=== PATIENT | female | born 1955 | race Caucasian/White ===

== ENCOUNTER 2018-10-07 16:45 | Inpatient (IN) ==
--- NOTE | 2018-10-07 17:56 | XR ---
EXAM DATE: 10/07/2018 5:53 PM EST AGE/SEX: 63 years / Female INDICATIONS: Pain in anterior chest. CLINICAL DATA: This is the patient's initial encounter. Patient reports that signs and symptoms have been present for 1 day and indicates a pain score of 5/10. MEDICAL/SURGICAL HISTORY: None. None. COMPARISON: No prior exams available for comparison. FINDINGS: A single AP view of the chest demonstrates the lungs to be symmetrically aerated without evidence of mass, infiltrate or effusion. The cardiomediastinal contours are unremarkable. Osseous structures a re intact. CONCLUSION: No acute intrathoracic disease. Electronically signed by: Chintan Ivan MD 10/07/2018 5:55 PM EST
[2018-10-07 17:58] LABS: Baso % (Auto) 0.3 % (0.0-2.0); Eos # (Auto) 0.1 th/mm3 (0.0-0.4); Eos % (Auto) 1.9 % (0.0-4.0); Hematocrit 47.1 % (35.0-46.0); Hemoglobin 15.1 gm/dL (11.6-15.3); Lymph # (Auto) 1.8 th/mm3 (1.0-4.8); Lymph % (Auto) 23.2 % (9.0-44.0); Mean Corpuscular HGB Conc 32.1 % (32.0-36.0); Mean Corpuscular Hemoglobin 29.9 pg (27.0-34.0); Mean Corpuscular Volume 93.1 fL (80.0-100.0); Mean Platelet Volume 8.4 fL (7.0-11.0); Mono # (Auto) 0.5 th/mm3 (0.0-0.9); Mono % (Auto) 6.2 % (0.0-8.0); Neut # (Auto) 5.3 th/mm3 (1.8-7.7); Neut % (Auto) 68.4 % (16.0-70.0); Platelet Count 261 th/mm3 (150-450); Red Blood Count 5.07 mil/mm3 (4.00-5.30); Red Cell Distribution Width 12.6 % (11.6-17.2); White Blood Count 7.7 th/mm3 (4.0-11.0)
[2018-10-07 18:13] LABS: Chloride 107 meq/L (98-107); Potassium 3.5 meq/L (3.5-5.1); Sodium 142 meq/L (136-145)
[2018-10-07 18:17] LABS: Albumin 3.8 g/dL (3.4-5.0); Anion Gap 5 meq/L (5-15); Calcium 8.3 mg/dL (8.5-10.1); Carbon Dioxide 30.2 meq/L (21.0-32.0); Glucose,Random 117 mg/dL (74-106); Lipase 136 U/L (73-393)
[2018-10-07 18:18] LABS: Blood Urea Nitrogen 8 mg/dL (7-18)
[2018-10-07 18:20] LABS: Alanine Aminotransferase 30 U/L (10-53); Aspartate Aminotransferase 79 U/L (15-37); Glomerular Filtration Rate 81 mL/min (>89)
[2018-10-07 18:22] LABS: Total Protein 7.3 g/dL (6.4-8.2)
[2018-10-07 18:23] LABS: Alkaline Phosphatase 84 U/L (45-117)
[2018-10-07 18:53] LABS: Troponin I 7.81 ng/mL (0.02-0.05)
[2018-10-07] MEDS ORDERED: Heparin 10,000 UNITS/10 ML Vial (for IV use) IV.PUSH STA (18:55)
[2018-10-07] MEDS ORDERED: Nitroglycerin Drip Premix 50 MG/250 ML BOTTLE IV.CONT PRN (19:17)
--- NOTE | 2018-10-07 19:46 | ED ---
HPI General Chief Complaint: Chest Pain Stated Complaint: chest pain Time Seen by Provider: 10/07/18 16:48 Source: patient Mode of arrival: ambulatory Limitations: no limitations History of Present Illness HPI narrative: 63 yo F c/o retrosternal CP for 3.5 days approximately. 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 pain can be severe at times with radiation into bilateral arms. no similar prior episodes. increased fatigue has accompanied pain. pt denies exertional component however reports decreased activity over past few days. no fever/ chills. no injury. no hx cad, htn, dm or family hx per patient. + baby asa yesterday (although pt reports asa causes tremors). + tobaccoism. Related Data Home Medications Medication Instructions Recorded Confirmed No Known Home Medications 10/07/18 10/07/18 Allergies Allergy/AdvReac Type Severity Reaction Status Date / Time aspirin Allergy Twitching Verified 10/07/18 17:07 Review of Systems ROS: all other systems reviewed are negative [facility] Medical History Medical History Hx of aplastic anemia (Acute) Hx of bronchitis (Acute) Surgical History Surgical History History of partial hysterectomy (Acute) Social History Social History Substance History: No History of Abuse Smoking Status: Current every day smoker Tobacco Type: Cigarettes How Often Do You Have a Drink Containing Alcohol: Monthly or less Recent Travel in [facility] within the Last 8 Weeks: No Recent Out of Country Travel within the Last 8 Weeks: No Immunization History Tetanus Immunization: >5 Years Exam Narrative Exam Narrative: GENERAL: 63 yo F, WNWD, pleasant, mild distress 2/2 pain SKIN: Focused skin assessment warm/dry. HEAD: Atraumatic. Normocephalic. EYES: Pupils equal and round. No scleral icterus. No injection or drainage. ENT: No nasal bleeding or discharge. Mucous membranes pink and moist. NECK: Trachea midline. No JVD. CARDIOVASCULAR: Regular rate and rhythm. No murmur appreciated. Minimal CP anterior chest wall. RESPIRATORY: No accessory muscle use. Clear to auscultation. Breath sounds equal bilaterally. GASTROINTESTINAL: Abdomen soft, non-tender, nondistended. Hepatic and splenic margins not palpable. MUSCULOSKELETAL: No obvious deformities. No clubbing. No cyanosis. No edema. NEUROLOGICAL: Awake and alert. No obvious cranial nerve deficits. Motor grossly within normal limits. Normal speech. PSYCHIATRIC: Appropriate mood and affect; insight and judgment normal. Course Initial Documented Vital Signs Temperature 98.2 F 10/07/18 17:01 Pulse Rate 77 10/07/18 17:01 Respiratory Rate 20 10/07/18 17:01 Blood Pressure 122/74 10/07/18 17:01 Pulse Oximetry 98 10/07/18 17:01 Last Documented Vital Signs Temperature 98.2 F 10/07/18 17:01 Pulse Rate 78 10/07/18 20:32 Respiratory Rate 16 10/07/18 20:32 Blood Pressure 118/81 10/07/18 20:32 Pulse Oximetry 99 10/07/18 20:32 Critical Care Time Critical Care Time: Yes Total Critical Care Time: 40 Attestation: Aggregate critical care time was 40 minutes. Time to perform other separately billable procedures was not included in the critical care time. My time did not include minutes spent treating any other patients simultaneously or on activities that did not directly contribute to the patient's treatment. The services I provided to this patient were to treat and/or prevent clinically significant deterioration that could result in: cardiomyopathy, permanent disability I provided critical care services requiring my management, as noted below: Chart data review, documentation time, medication orders and management, vital sign assessments/reviewing monitor data, ordering and reviewing lab tests, ordering and interpreting/reviewing x-rays and diagnostic studies, care of the patient and discussion of the patient with the admitting physicians. Medical Decision Making MDM Narrative Medical decision making narrative: Tn 7.8 EKG sinus rate 75 normal axis, TWI in II/III and aVF and V5/V6 pt c/o bilateral arm pain at 1850, nitro and heparin ordered d/w Dr Ely: NPO p MN, heparin gtt and nitro gtt d/w Dr Roberts for [facility] discussed plan with patient, who verbalized agreement with it pain controlled in ED Medical Screen Exam Complete: Yes Emergency Medical Condition: Yes Differential Diagnosis Differential Diagnosis: NSTEMI, unstable angina, coronary vasospasm, PE, PTX, aortic dissection, pericarditis, myocarditis, endocarditis, PNA, esophageal disease, aneurysm, musculoskeletal etiologies, anxiety, cocaine/sympathomimetic abuse Lab Data Lab results reviewed: Yes I reviewed the patient's lab results. Result diagrams: 10/07/18 17:15 10/07/18 17:15 Lab Results 10/07/18 10/07/18 10/07/18 Range/Units 17:15 17:15 19:30 CBC w Diff Auto diff final WBC 7.7 (4.0-11.0) th/mm3 RBC 5.07 (4.00-5.30) mil/mm3 Hgb 15.1 (11.6-15.3) gm/dL Hct 47.1 H (35.0-46.0) % MCV 93.1 (80.0-100.0) fL MCH 29.9 (27.0-34.0) pg MCHC 32.1 (32.0-36.0) % RDW 12.6 (11.6-17.2) % Plt Count 261 (150-450) th/mm3 MPV 8.4 (7.0-11.0) fL Neut % (Auto) 68.4 (16.0-70.0) % Lymph % (Auto) 23.2 (9.0-44.0) % [place] % (Auto) 6.2 (0.0-8.0) % Eos % (Auto) 1.9 (0.0-4.0) % Baso % (Auto) 0.3 (0.0-2.0) % Neut # (Auto) 5.3 (1.8-7.7) th/mm3 Lymph # (Auto) 1.8 (1.0-4.8) th/mm3 [place] # (Auto) 0.5 (0.0-0.9) th/mm3 Eos # (Auto) 0.1 (0.0-0.4) th/mm3 Baso # (Auto) 0.0 (0.0-0.2) th/mm3 WBC Differential . Differential Comment . PT 10.0 (9.8-11.6) sec INR 1.0 Ratio APTT 28.2 (23.4-31.7) sec Sodium 142 (136-145) meq/L Potassium 3.5 (3.5-5.1) meq/L Chloride 107 (98-107) meq/L Carbon Dioxide 30.2 (21.0-32.0) meq/L Anion Gap 5 (5-15) meq/L BUN 8 (7-18) mg/dL Creatinine 0.73 (0.50-1.00) mg/dL Estimated GFR 81 L (>89) mL/min Random Glucose 117 H (74-106) mg/dL Calcium 8.3 L (8.5-10.1) mg/dL Total Bilirubin 0.2 (0.2-1.0) mg/dL AST 79 H (15-37) U/L ALT 30 (10-53) U/L Alkaline Phosphatase 84 (45-117) U/L Troponin I 7.81 H* (0.02-0.05) ng/mL Total Protein 7.3 (6.4-8.2) g/dL Albumin 3.8 (3.4-5.0) g/dL Lipase 136 (73-393) U/L Imaging Data Radiologist's impression: Chest X-Ray 10/07/18 17:36 CONCLUSION: No acute intrathoracic disease. Discharge Plan Discharge Disposition Patient Disposition: ED Admit(ED Internal Use Only) Discharge Order Discharge Orders: ED Use Only Admit Order (Routine); Ordered 10/07/18 Ordered By: Zach Grossman Physicians Team ED Provider: Zach Grossman Primary Care Provider: Primary Care Mike,Yasmine Attending Provider: Zach Roberts Status ED Status: Admitted Patient
[2018-10-07 19:50] LABS: Activated Partial Thrombo Time 28.2 sec (23.4-31.7)
[2018-10-07] MEDS ORDERED: Acetaminophen 325 MG Tablet PO PRN (20:10)
[2018-10-07] MEDS ORDERED: Bisacodyl 10 MG Supp RECTAL PRN (20:10)
[2018-10-07] MEDS: Sod Chloride 0.9% Inj 1,000 ML IV.CONT SCH (20:29)
--- NOTE | 2018-10-07 21:00 | ECG ---
Date Performed: 10/07/2018 Time Performed: 16:58:33 PTAGE: 63 years EKG: Sinus rhythm versus ECTOPIC ATRIAL RHYTHM ST DEVIATION AND MODERATE T-WAVE ABNORMALITY, CONSIDER LATERAL ISCHEMIA ABNORMAL ECG WARNING: DATA QUALITY MAY AFFECT INTERPRETATION NO PREVIOUS TRACING DOCTOR: Rigo Chau Interpretating Date/Time 10/07/2018 20:59:45
[2018-10-08] MEDS ORDERED: Heparin Drip 25,000 UNIT/250 ML BAG IV.CONT PRN (00:55)
[2018-10-08] MEDS ORDERED: Heparin 10,000 UNITS/10 ML Vial (for IV use) IV.PUSH PRN ×3 (00:56→07:03)
--- NOTE | 2018-10-08 01:43 | P.HPIM ---
History of Present Illness Service: [facility] . Primary Care Physician: No Primary Care Physician Chief Complaint: Chest pain History of Present Illness: Ms. Pacheco is a 63-year-old female with a history of bronchitis and remote aplastic anemia in the 70s who presented to the emergency room and [place] complaining of 3-1/2 days of intermittent chest pain. Her initial troponin I was 7.81, and she was admitted to the [facility]. The patient was started on nitroglycerin IV and transferred to [facility] for cardiac cath with Dr. Grossman in the morning. The patient is seen in her hospital room. She reports that she smoked a cigarette on Friday that "tasted funny" and she thinks this caused her chest pain. She states her chest pain lasted for about an hour was accompanied by diaphoresis and radiated down both arms with what is described as an achy pain. She states she had intermittent episodes of chest pain over the past 3-1/2 days with nausea only occurring yesterday. The pain went away with rest but felt severe and heavy in quality. She has been feeling okay otherwise and denies any fevers, chills, shortness of breath, nausea, vomiting, or diarrhea. She really reports that her chest pain had more of an exertional component. She denies any chest pain at the time of my visit. . Inpatient Certification: I certify that the inpatient services were ordered in accordance with Medicare regulations governing the order. This includes certification that hospital inpatient services are reasonable and necessary and in the case of services not specified as inpatient-only under 42 CFR 419.22(n), that they are appropriately provided as inpatient services in accordance to with the 2-midnight benchmark under 43 CFR 412.3(e) Estimated Total Length of Stay (Days): 3 Plans for Post Hospital Care: Not yet determined Review of Systems All other systems reviewed negative except as stated in HPI PMFSH - History History Provided By: Patient - Medical History Medical History: Medical History (Last Updated 10/08/18 @ 02:01 by ARGENIS Jean) Hx of aplastic anemia Onset Date: ~1970 Hx of bronchitis - Surgical History Surgical History: Surgical History (Last Reviewed 10/08/18 @ 01:02 by ARGENIS Jean) History of partial hysterectomy - Family History Family History: Family History (Last Updated 10/08/18 @ 02:02 by ARGENIS Jean) Mother Family history of angina Aunt Family history of congestive heart failure - Social History I have reviewed the patient's Social History: Yes - Tobacco History Tobacco Use In Past 30 Days: Yes Smoking Status: Current every day smoker Tobacco Type: Cigarettes - Alcohol History How Often Do You Have a Drink Containing Alcohol: Monthly or less - Substance Use History Substance History: No History of Abuse - Travel History Recent Travel in the [place] Within the Last 8 Weeks: No Recent Travel Out of the Country Within the Last 8 Weeks: No - Immunization History Tetanus Immunization: >5 Years Medications and Allergies Active Medications: Active Medications Acetaminophen (Tylenol) 650 mg PO Q4H PRN PRN Reason: Temp > 100.4 Al Hydroxide/Mg Hydroxide (Milk Of Magnesia Liq) 30 ml PO Q12H PRN PRN Reason: Mild Constipation Aspirin (Aspirin Chew) 81 mg PO DAILY [facility] Last Admin: 10/07/18 20:30 Dose: Not Given Bisacodyl (Dulcolax Supp) 10 mg RECTAL DAILY PRN PRN Reason: SEVERE CONSITIPATION Heparin Sodium (Porcine) (Heparin Inj) 2,500 units IV.PUSH UNSCH PRN PRN Reason: aPTT 25-39 Heparin Sodium (Porcine) (Heparin Inj) 5,000 units IV.PUSH UNSCH PRN PRN Reason: aPTT < 25 Nitroglycerin/Dextrose (Nitroglycerin Drip Premix) 50 mg in 250 mls @ 0 mls/hr IV.CONT TITRATE PRN; Protocol PRN Reason: Per Protocol Last Admin: 10/07/18 20:14 Dose: 5 mcg/min, 1.5 mls/hr Sodium Chloride (Ns Inj) 1,000 mls @ 70 mls/hr IV.CONT .[id number] [facility] Last Admin: 10/07/18 20:29 Dose: 70 mls/hr Heparin Sodium/Dextrose (Heparin/D5w 25,000 U/250 Ml) 25,000 unit in 250 mls @ 7 mls/hr IV.CONT TITRATE PRN; Protocol PRN Reason: Per Protocol Last Admin: 10/08/18 01:23 Dose: 700 units/hr, 7 mls/hr Lactulose (Lactulose Liq) 30 ml PO DAILY PRN PRN Reason: SEVERE CONSITIPATION Ondansetron HCl (Zofran Inj) 4 mg IV.PUSH Q6H PRN PRN Reason: NAUSEA OR VOMITING Sennosides (Senokot) 17.2 mg PO Q12H PRN PRN Reason: Moderate Constipation Sodium Chloride (Ns Flush) 2 ml IV.FLUSH BID QUINTON Sodium Chloride (Ns Flush) 2 ml IV.FLUSH PRN PRN PRN Reason: FLUSH AFTER USING IV ACCESS Allergies Allergy/AdvReac Type Severity Reaction Status Date / Time aspirin Allergy Twitching Verified 10/07/18 17:07 Home Medications Medication Instructions Recorded Confirmed Type No Known Home Medications 10/07/18 10/07/18 History Exam Vital signs: Vital Signs 10/07/18 17:01 10/07/18 17:15 10/07/18 17:55 Temperature 98.2 F Pulse Rate 77 68 64 Respiratory Rate 20 20 Blood Pressure 122/74 128/81 Pulse Oximetry 98 97 97 10/07/18 19:19 10/07/18 19:40 10/07/18 20:32 Temperature Pulse Rate 72 74 78 Respiratory Rate 20 18 16 Blood Pressure 137/90 128/88 118/81 Pulse Oximetry 100 100 99 10/07/18 20:53 10/07/18 21:20 10/07/18 21:43 Temperature Pulse Rate 78 82 78 Respiratory Rate 16 18 18 Blood Pressure 104/78 125/84 107/63 Pulse Oximetry 99 99 100 Intake & Output 10/07/18 10/07/18 10/08/18 06:59 18:59 06:59 Output Total 300 / 300 Balance -300 / -300 Weight 62 kg Output: Urine 300 / 300 Other: # Voids 1 Narrative: GENERAL: This is a thin older female patient, in no apparent distress. SKIN: No rashes, ecchymoses or lesions. Cool and dry. HEAD: Atraumatic. Normocephalic. EYES: No scleral icterus. No injection or drainage. ENT: Nose without bleeding, purulent drainage. NECK: Trachea midline. No JVD or lymphadenopathy. CARDIOVASCULAR: Regular rate and rhythm without murmurs, gallops, or rubs. RESPIRATORY: Breath sounds equal bilaterally; air exchange diminished at bases. No wheezes, rales, or rhonchi. GASTROINTESTINAL: Abdomen soft, non-tender, nondistended. No guarding. MUSCULOSKELETAL: Extremities without clubbing, cyanosis, or edema. No calf tenderness. NEUROLOGICAL: Awake and alert. Motor and sensory grossly within normal limits. Normal speech. . Results - Labs CBC & Chem 7: 10/08/18 01:24 10/08/18 01:24 Labs: Short CBC 10/07/18 Range/Units 17:15 WBC 7.7 (4.0-11.0) th/mm3 Hgb 15.1 (11.6-15.3) gm/dL Hct 47.1 H (35.0-46.0) % Plt Count 261 (150-450) th/mm3 BMP 10/07/18 17:15 Sodium 142 Potassium 3.5 Chloride 107 Carbon Dioxide 30.2 BUN 8 Creatinine 0.73 Calcium 8.3 L Cardiac Enzymes 10/07/18 10/07/18 Range/Units 17:15 20:50 Troponin I 7.81 H* 15.70 H* D (0.02-0.05) ng/mL Liver Function 10/07/18 Range/Units 17:15 Total Bilirubin 0.2 (0.2-1.0) mg/dL AST 79 H (15-37) U/L ALT 30 (10-53) U/L Alkaline Phosphatase 84 (45-117) U/L Albumin 3.8 (3.4-5.0) g/dL - Imaging Impressions Chest X-Ray 10/07/18 17:36 CONCLUSION: No acute intrathoracic disease. Caprini VTE Risk Assessment Caprini VTE Risk Assessment: Moderate/High Risk (score >= 2) Caprini Risk Assessment Model: Point Value = 1 Point Value = 2 Point Value = 3 Point Value = 5 Age 41-60 Minor surgery BMI > 25 kg/m2 Swollen legs Varicose veins or History of unexplained or recurrent spontaneous Oral contraceptives or hormone replacement Sepsis (< 1 month) Serious lung disease, including pneumonia (< 1 month) Abnormal pulmonary function Acute myocardial infarction Congestive heart failure (< 1 month) History of inflammatory bowel disease Medical patient at bed rest Age 61-74 Arthroscopic surgery Major open surgery (> 45 min) Laparoscopic surgery (> 45 min) Malignancy Confined to bed (> 72 hours) Immobilizing plaster cast Central venous access Age >= 75 History of VTE Family history of VTE Factor V Leiden Prothrombin [id number] Lupus anticoagulant Anticardiolipin antibodies Elevated serum homocysteine Heparin-induced thrombocytopenia Other congenital or acquired thrombophilia Stroke (< 1 month) Elective arthroplasty Hip, pelvis, or leg fracture Acute spinal cord injury (< 1 month) Prophylaxis Regimen: Total Risk Factor Score Risk Level Prophylaxis Regimen 0-1 Low Early ambulation 2 Moderate Order ONE of the following: *Sequential Compression Device (SCD) *Heparin 5000 units SQ BID 3-4 Higher Order ONE of the following medications: *Heparin 5000 units SQ TID *Enoxaparin/Lovenox 40 mg SQ daily (WT < 150 kg, CrCl > 30 mL/min) *Enoxaparin/Lovenox 30 mg SQ daily (WT < 150 kg, CrCl > 10-29 mL/min) *Enoxaparin/Lovenox 30 mg SQ BID (WT < 150 kg, CrCl > 30 mL/min) AND/OR *Sequential Compression Device (SCD) 5 or more Highest Order ONE of the following medications: *Heparin 5000 units SQ TID (Preferred with Epidurals) *Enoxaparin/Lovenox 40 mg SQ daily (WT < 150 kg, CrCl > 30 mL/min) *Enoxaparin/Lovenox 30 mg SQ daily (WT < 150 kg, CrCl > 10-29 mL/min) *Enoxaparin/Lovenox 30 mg SQ BID (WT < 150 kg, CrCl > 30 mL/min) AND *Sequential Compression Device (SCD) Assessment and Plan - Plan Ms. Pacheco is a 63-year-old female with a history of bronchitis and remote aplastic anemia in the 70s who presented to the emergency room and [place] complaining of 3-1/2 days of intermittent chest pain. Her initial troponin I was 7.81, and she was admitted to the [facility]. The patient was started on nitroglycerin IV and transferred to [facility] for cardiac cath with Dr. Grossman in the morning. NSTEMI -Troponin I 7.81, 15.70, and 34.8 -Twelve-lead EKG is personally reviewed and show ectopic atrial rhythm with nonspecific ST and T wave abnormalities in lateral leads x 2 ekgs -Continue nitroglycerin drip -Heparin drip ordered with boluses -Consult to cardiology-appreciate assistance -Continuous cardiac telemetry to monitor for arrhythmia -Monitor I and O for fluid overload -Monitor vital signs -Supplemental oxygen as needed -N.p.o. except for meds -We will check hemoglobin A1c and lipid profile for underlying predisposing conditions DVT prophylaxis -on heparin drip Discussed Condition With: Dr. Richard, patient, patient's daughter with patient's permission, and bedside RN .
[2018-10-08 01:50] LABS: Baso % (Auto) 0.2 % (0.0-2.0); Eos # (Auto) 0.1 th/mm3 (0.0-0.4); Eos % (Auto) 0.9 % (0.0-4.0); Hematocrit 40.6 % (35.0-46.0); Hemoglobin 13.9 gm/dL (11.6-15.3); Lymph # (Auto) 1.6 th/mm3 (1.0-4.8); Lymph % (Auto) 15.9 % (9.0-44.0); Mean Corpuscular HGB Conc 34.3 % (32.0-36.0); Mean Corpuscular Hemoglobin 31.4 pg (27.0-34.0); Mean Corpuscular Volume 91.7 fL (80.0-100.0); Mean Platelet Volume 7.1 fL (7.0-11.0); Mono # (Auto) 0.7 th/mm3 (0.0-0.9); Mono % (Auto) 7.3 % (0.0-8.0); Neut # (Auto) 7.7 th/mm3 (1.8-7.7); Neut % (Auto) 75.7 % (16.0-70.0); Platelet Count 203 th/mm3 (150-450); Prothrombin Time 10.5 sec (9.8-11.6); Red Blood Count 4.43 mil/mm3 (4.00-5.30); Red Cell Distribution Width 12.7 % (11.6-17.2); White Blood Count 10.1 th/mm3 (4.0-11.0)
[2018-10-08 02:02] LABS: Potassium 4.1 meq/L (3.5-5.1); Sodium 144 meq/L (136-145)
[2018-10-08 02:03] LABS: Alanine Aminotransferase 36 U/L (10-53); Anion Gap 3 meq/L (5-15); Aspartate Aminotransferase 116 U/L (15-37); Blood Urea Nitrogen 7 mg/dL (7-18); Calcium 8.2 mg/dL (8.5-10.1); Carbon Dioxide 31.1 meq/L (21.0-32.0); Chloride 110 meq/L (98-107); Glomerular Filtration Rate 74 mL/min (>89); Glucose,Random 137 mg/dL (74-106); Total Protein 6.5 g/dL (6.4-8.2)
[2018-10-08 02:04] LABS: Albumin 3.2 g/dL (3.4-5.0); Alkaline Phosphatase 72 U/L (45-117)
[2018-10-08 02:54] LABS: Activated Partial Thrombo Time 26.5 sec (23.4-31.7)
[2018-10-08 03:19] LABS: Chol/HDL Ratio 3.16 Ratio; HDL Cholesterol 55.9 mg/dL (40.0-60.0)
[2018-10-08] MEDS: Sod Chloride 0.9% Inj 1,000 ML IV.CONT SCH (05:58)
--- NOTE | 2018-10-08 06:55 | ECG ---
Date Performed: 10/07/2018 Time Performed: 22:04:57 PTAGE: 63 years EKG: ECTOPIC ATRIAL RHYTHM POSSIBLE LEFT ATRIAL ENLARGEMENT POSSIBLE RIGHT VENTRICULAR CONDUCTIO N DELAY Nonspecific ST and T wave abnormalities ABNORMAL ECG I'm not convinced there is any significa nt change although lead 2 appears incomplete. PREVIOUS TRACING : 10/07/2018 16.58 DOCTOR: Rigo Chau Interpretating Date/Time 10/08/2018 06:54:02
--- NOTE | 2018-10-08 08:02 | ECG ---
Date Performed: 10/08/2018 Time Performed: 03:30:52 PTAGE: 63 years EKG: Sinus rhythm Left axis deviation Possible inferior infarct - age undetermined Nonspecific ST and T wave abnormali ties Abnormal ECG No significant change from prior electrocardiogram. PREVIOUS TRACING : 10/07/2018 22.04 DOCTOR: Rigo Chau Interpretating Date/Time 10/08/2018 08:00:35
--- NOTE | 2018-10-08 08:33 | P.CONCA ---
History of Present Illness Primary Care Provider: No Primary Care Physician Chief Complaint: Chest pain History of Present Illness: 63-year-old female with no known past medical history who presented for chest pain. The patient states she had discomfort across her chest with associated bilateral arm numbness that lasted for several hours while watching football on Friday. She states the pain went away on its own, but the pain recurred yesterday and she went to the ED in [place] for evaluation. She reports no further chest pain since started on heparin and nitro GTTs. EKGs with NSR and inferolateral T wave inversions. Troponin 7->34. She is agreeable to [facility], but is very concerned with allergies. She states that she took aspirin for a year, but has not taken it for the last 20 years because once she took it for headache and it made the headache worse, she became shaky, and she vomited. She is also concerned about contrast administration with heart cath as her mother and aunts have contrast allergies, has never had contrast herself. Review of Systems All other systems reviewed negative except as stated in HPI [facility] - History History Provided By: Patient, Medical Record - Medical History Medical History: Medical History (Last Updated 10/08/18 @ 02:01 by ARGNEIS Jean) Hx of aplastic anemia Onset Date: ~1970 Hx of bronchitis - Surgical History Surgical History: Surgical History (Last Reviewed 10/08/18 @ 01:02 by ARGENIS Jean) History of partial hysterectomy - Family History Family History: Family History (Last Updated 10/08/18 @ 02:02 by ARGENIS Jean) Mother Family history of angina Aunt Family history of congestive heart failure - Tobacco History Second Hand Smoke Exposure: Yes Tobacco Use In Past 30 Days: Yes Smoking Status: Current every day smoker Tobacco Type: Cigarettes - Alcohol History How Often Do You Have a Drink Containing Alcohol: Monthly or less - Substance Use History Substance History: No History of Abuse - Travel History Recent Travel in the [place] Within the Last 8 Weeks: No Recent Travel Out of the Country Within the Last 8 Weeks: No - Immunization History Tetanus Immunization: >5 Years Hx Influenza Vaccine This Season: No Medications and Allergies Active Medications: Active Medications Acetaminophen (Tylenol) 650 mg PO Q4H PRN PRN Reason: Temp > 100.4 Al Hydroxide/Mg Hydroxide (Milk Of [place]and[place] Liq) 30 ml PO Q12H PRN PRN Reason: Mild Constipation Aspirin (Aspirin Chew) 81 mg PO DAILY [facility] Last Admin: 10/07/18 20:30 Dose: Not Given Bisacodyl (Dulcolax Supp) 10 mg RECTAL DAILY PRN PRN Reason: SEVERE CONSITIPATION Heparin Sodium (Porcine) (Heparin Inj) 2,500 units IV.PUSH UNSCH PRN PRN Reason: aPTT 25-39 Heparin Sodium (Porcine) (Heparin Inj) 5,000 units IV.PUSH UNSCH PRN PRN Reason: aPTT < 25 Nitroglycerin/Dextrose (Nitroglycerin Drip Premix) 50 mg in 250 mls @ 0 mls/hr IV.CONT TITRATE PRN; Protocol PRN Reason: Per Protocol Last Admin: 10/07/18 20:14 Dose: 5 mcg/min, 1.5 mls/hr Sodium Chloride (Ns Inj) 1,000 mls @ 70 mls/hr IV.CONT .[id number] [facility] Last Admin: 10/08/18 05:58 Dose: 70 mls/hr Heparin Sodium/Dextrose (Heparin/D5w 25,000 U/250 Ml) 25,000 unit in 250 mls @ 7 mls/hr IV.CONT TITRATE PRN; Protocol PRN Reason: Per Protocol Last Admin: 10/08/18 01:23 Dose: 700 units/hr, 7 mls/hr Lactulose (Lactulose Liq) 30 ml PO DAILY PRN PRN Reason: SEVERE CONSITIPATION Ondansetron HCl (Zofran Inj) 4 mg IV.PUSH Q6H PRN PRN Reason: NAUSEA OR VOMITING Sennosides (Senokot) 17.2 mg PO Q12H PRN PRN Reason: Moderate Constipation Sodium Chloride (Ns Flush) 2 ml IV.FLUSH BID [facility] Last Admin: 10/08/18 02:14 Dose: Not Given Sodium Chloride (Ns Flush) 2 ml IV.FLUSH PRN PRN PRN Reason: FLUSH AFTER USING IV ACCESS Allergies Allergy/AdvReac Type Severity Reaction Status Date / Time aspirin Allergy Twitching Verified 10/07/18 17:07 Home Medications Medication Instructions Recorded Confirmed Type No Known Home Medications 10/07/18 10/07/18 History Exam Vital signs: Vital Signs 10/07/18 17:01 12/12/18 17:15 10/07/18 17:55 Temperature 98.2 F Pulse Rate 77 68 64 Respiratory Rate 20 20 Blood Pressure 122/74 128/81 Pulse Oximetry 98 97 97 10/07/18 19:19 10/07/18 19:40 10/07/18 20:32 Temperature Pulse Rate 72 74 78 Respiratory Rate 20 18 16 Blood Pressure 137/90 128/88 118/81 Pulse Oximetry 100 100 99 10/07/18 20:53 10/07/18 21:20 10/07/18 21:43 Temperature Pulse Rate 78 82 78 Respiratory Rate 16 18 Blood Pressure 104/78 125/84 107/63 Pulse Oximetry 99 99 100 10/08/18 00:59 10/08/18 01:00 10/08/18 02:00 Temperature 98.2 F Pulse Rate 70 67 69 Respiratory Rate 20 Blood Pressure 137/89 Pulse Oximetry 98 10/08/18 03:00 10/08/18 04:00 10/08/18 05:00 Temperature 98.4 F Pulse Rate 66 76 69 Respiratory Rate 18 Blood Pressure 108/77 Pulse Oximetry 100 10/08/18 06:00 10/08/18 07:00 Temperature 98.6 F Pulse Rate 88 82 Respiratory Rate 18 Blood Pressure 108/65 Pulse Oximetry 97 Intake & Output 10/07/18 10/08/18 10/08/18 18:59 06:59 18:59 Intake Total 1090 / 1090 Output Total 300 / 300 Balance 790 / 790 Weight 136 lb 10.986 oz 136 lb 14.513 oz Intake: IV 850 / 850 NS Inj 1,000 ML @ 70 mls/hr IV. 850 / 850 CONT .[id number] [facility] Rx#: [id number] Oral 240 / 240 Output: Urine 300 / 300 Other: # Voids 2 Narrative: GENERAL: Well-developed well-nourished. In no acute distress. NECK: No carotid bruits. No JVD. CARDIOVASCULAR: Regular rate and rhythm. No murmur appreciated. RESPIRATORY: No accessory muscle use. Clear to auscultation. Breath sounds equal bilaterally. MUSCULOSKELETAL: No clubbing or cyanosis. No edema. NEUROLOGICAL: Awake and alert. Normal speech. Results 10/08/18 01:24 10/08/18 01:24 Cardiac Enzymes 10/07/18 10/07/18 10/08/18 Range/Units 17:15 20:50 01:24 AST 79 H 116 H (15-37) U/L Troponin I 7.81 H* 15.70 H* D 34.80 H* D (0.02-0.05) ng/mL Coagulation 10/07/18 10/08/18 10/08/18 Range/Units 19:30 01:24 06:56 PT 10.0 10.5 (9.8-11.6) sec APTT 28.2 26.5 33.8 H D (23.4-31.7) sec Lipids 10/08/18 Range/Units 01:24 Triglycerides 170 H (42-150) mg/dL Cholesterol 177 (120-200) mg/dL HDL Cholesterol 55.9 (40.0-60.0) mg/dL Cholesterol/HDL Ratio 3.16 Ratio CBC 10/07/18 10/08/18 Range/Units 17:15 01:24 WBC 7.7 10.1 (4.0-11.0) th/mm3 RBC 5.07 4.43 (4.00-5.30) mil/mm3 Hgb 15.1 13.9 (11.6-15.3) gm/dL Hct 47.1 H 40.6 (35.0-46.0) % Plt Count 261 203 (150-450) th/mm3 Neut # (Auto) 5.3 7.7 (1.8-7.7) th/mm3 Lymph # (Auto) 1.8 1.6 (1.0-4.8) th/mm3 [place] # (Auto) 0.5 0.7 (0.0-0.9) th/mm3 Eos # (Auto) 0.1 0.1 (0.0-0.4) th/mm3 Baso # (Auto) 0.0 0.0 (0.0-0.2) th/mm3 Comprehensive Metabolic Panel 10/07/18 10/08/18 Range/Units 17:15 01:24 Sodium 142 144 (136-145) meq/L Potassium 3.5 4.1 (3.5-5.1) meq/L Chloride 107 110 H (98-107) meq/L Carbon Dioxide 30.2 31.1 (21.0-32.0) meq/L BUN 8 7 (7-18) mg/dL Creatinine 0.73 0.79 (0.50-1.00) mg/dL Calcium 8.3 L 8.2 L (8.5-10.1) mg/dL AST 79 H 116 H (15-37) U/L ALT 30 36 (10-53) U/L Alkaline Phosphatase 84 72 (45-117) U/L Total Protein 7.3 6.5 D (6.4-8.2) g/dL Albumin 3.8 3.2 L D (3.4-5.0) g/dL Intake and Output 10/07/18 10/08/18 10/08/18 22:59 06:59 14:59 Intake Total 1090 / 1090 Output Total 300 / 300 Balance -300 / -300 1090 / 1090 Intake: IV 850 / 850 NS Inj 1,000 ML @ 70 mls/hr IV. 850 / 850 CONT .[id number] [facility] Rx#: [id number] Oral 240 / 240 Output: Urine 300 / 300 Other: # Voids 1 2 Weight 136 lb 10.986 oz 136 lb 14.513 oz - Imaging and Cardiology Imaging: Impressions Chest X-Ray 10/07/18 17:36 CONCLUSION: No acute intrathoracic disease. Assessment and Plan - Plan 63-year-old female smoker with no known past medical history who presented for chest pain. NSTEMI: Continue heparin and nitro GTTs for now. N.p.o. for [facility] today. Discussed Condition With: Patient with family at bedside, Dr. Ely
--- NOTE | 2018-10-08 12:04 | ECG ---
Date Performed: 10/08/2018 Time Performed: 09:18:22 PTAGE: 63 years EKG: Sinus rhythm . Left axis deviation Possible left ventricular hypertrophy Nonspecific ST and T wave abnormalities A bnormal ECG No significant change from prior electrocardiogram. G DOCTOR: Rigo Chau Interpretating Date/Time 10/08/2018 12:02:47
--- NOTE | 2018-10-08 12:06 | P.PN ---
Subjective Interval history: earlier off the floor- went for cardiac cath seen 1330 back from cardiac cath tolerated well no complains states previous smoker Physical Exam Vital signs: Vital Signs 10/07/18 17:01 10/07/18 17:15 10/07/18 17:55 Temperature 98.2 F Pulse Rate 77 68 64 Respiratory Rate 20 20 Blood Pressure 122/74 128/81 Pulse Oximetry 98 97 97 10/07/18 19:19 10/07/18 19:40 10/07/18 20:32 Temperature Pulse Rate 72 74 78 Respiratory Rate 20 18 16 Blood Pressure 137/90 128/88 118/81 Pulse Oximetry 100 100 99 10/07/18 20:53 10/07/18 21:20 10/07/18 21:43 Temperature Pulse Rate 78 82 78 Respiratory Rate 16 18 18 Blood Pressure 104/78 125/84 107/63 Pulse Oximetry 99 99 100 10/08/18 00:59 10/08/18 01:00 10/08/18 02:00 Temperature 98.2 F Pulse Rate 70 67 69 Respiratory Rate 20 Blood Pressure 137/89 Pulse Oximetry 98 10/08/18 03:00 10/08/18 04:00 10/08/18 05:00 Temperature 98.4 F Pulse Rate 66 76 69 Respiratory Rate 18 Blood Pressure 108/77 Pulse Oximetry 100 10/08/18 06:00 10/08/18 07:00 10/08/18 08:00 Temperature 98.6 F Pulse Rate 88 70 80 Respiratory Rate 18 Blood Pressure 108/65 Pulse Oximetry 97 10/08/18 09:00 10/08/18 10:00 10/08/18 10:05 Temperature Pulse Rate 78 78 Respiratory Rate Blood Pressure Pulse Oximetry 97 Intake & Output 10/07/18 10/08/18 10/08/18 18:59 06:59 18:59 Intake Total 1090 / 1090 Output Total 300 / 300 Balance 790 / 790 Weight 62 kg 62.1 kg Intake: IV 850 / 850 NS Inj 1,000 ML @ 70 mls/hr IV. 850 / 850 CONT .[id number] [facility] Rx#: [id number] Oral 240 / 240 Output: Urine 300 / 300 Other: # Voids 2 Narrative: GENERAL: Well-developed well-nourished. In no acute distress. NECK: No carotid bruits. No JVD. CARDIOVASCULAR: Regular rate and rhythm. RESPIRATORY: No accessory muscle use. Clear to auscultation. Breath sounds equal bilaterally. MUSCULOSKELETAL: No clubbing or cyanosis. LE No edema. right wrist - TR band in place NEUROLOGICAL: Awake and alert. Normal speech. Results - Labs CBC & Chem 7: 10/08/18 01:24 10/08/18 01:24 Laboratory Results - last 24 hr 10/07/18 10/07/18 10/07/18 17:15 17:15 19:30 CBC w Diff Auto diff final WBC 7.7 RBC 5.07 Hgb 15.1 Hct 47.1 H MCV 93.1 MCH 29.9 MCHC 32.1 RDW 12.6 Plt Count 261 MPV 8.4 Neut % (Auto) 68.4 Lymph % (Auto) 23.2 [place] % (Auto) 6.2 Eos % (Auto) 1.9 Baso % (Auto) 0.3 Neut # (Auto) 5.3 Lymph # (Auto) 1.8 [place] # (Auto) 0.5 Eos # (Auto) 0.1 Baso # (Auto) 0.0 WBC Differential . Differential Comment . PT 10.0 INR 1.0 APTT 28.2 Sodium 142 Potassium 3.5 Chloride 107 Carbon Dioxide 30.2 Anion Gap 5 BUN 8 Creatinine 0.73 Estimated GFR 81 L Random Glucose 117 H Calcium 8.3 L Total Bilirubin 0.2 AST 79 H ALT 30 Alkaline Phosphatase 84 Troponin I 7.81 H* Total Protein 7.3 Albumin 3.8 Triglycerides Cholesterol LDL Cholesterol, Calc HDL Cholesterol Cholesterol/HDL Ratio Lipase 136 10/07/18 10/08/18 10/08/18 20:50 01:24 01:24 CBC w Diff WBC 10.1 RBC 4.43 Hgb 13.9 Hct 40.6 MCV 91.7 MCH 31.4 MCHC 34.3 RDW 12.7 Plt Count 203 MPV 7.1 Neut % (Auto) 75.7 H Lymph % (Auto) 15.9 [place] % (Auto) 7.3 Eos % (Auto) 0.9 Baso % (Auto) 0.2 Neut # (Auto) 7.7 Lymph # (Auto) 1.6 [place] # (Auto) 0.7 Eos # (Auto) 0.1 Baso # (Auto) 0.0 WBC Differential . Differential Comment Auto diff final PT INR APTT Sodium 144 Potassium 4.1 Chloride 110 H Carbon Dioxide 31.1 Anion Gap 3 L BUN 7 Creatinine 0.79 Estimated GFR 74 L Random Glucose 137 H Calcium 8.2 L Total Bilirubin 0.2 AST 116 H ALT 36 Alkaline Phosphatase 72 Troponin I 15.70 H* D 34.80 H* D Total Protein 6.5 D Albumin 3.2 L D Triglycerides Cholesterol LDL Cholesterol, Calc HDL Cholesterol Cholesterol/HDL Ratio Lipase 10/08/18 10/08/18 10/08/18 01:24 01:24 06:56 CBC w Diff WBC RBC Hgb Hct MCV MCH MCHC RDW Plt Count MPV Neut % (Auto) Lymph % (Auto) [place] % (Auto) Eos % (Auto) Baso % (Auto) Neut # (Auto) Lymph # (Auto) [place] # (Auto) Eos # (Auto) Baso # (Auto) WBC Differential Differential Comment PT 10.5 INR 1.0 APTT 26.5 Sodium Potassium Chloride Carbon Dioxide Anion Gap BUN Creatinine Estimated GFR Random Glucose Calcium Total Bilirubin AST ALT Alkaline Phosphatase Troponin I 35.90 H* D Total Protein Albumin Triglycerides 170 H Cholesterol 177 LDL Cholesterol, Calc 87 HDL Cholesterol 55.9 Cholesterol/HDL Ratio 3.16 Lipase 10/08/18 06:56 CBC w Diff WBC RBC Hgb Hct MCV MCH MCHC RDW Plt Count MPV Neut % (Auto) Lymph % (Auto) [place] % (Auto) Eos % (Auto) Baso % (Auto) Neut # (Auto) Lymph # (Auto) [place] # (Auto) Eos # (Auto) Baso # (Auto) WBC Differential Differential Comment PT INR APTT 33.8 H D Sodium Potassium Chloride Carbon Dioxide Anion Gap BUN Creatinine Estimated GFR Random Glucose Calcium Total Bilirubin AST ALT Alkaline Phosphatase Troponin I Total Protein Albumin Triglycerides Cholesterol LDL Cholesterol, Calc HDL Cholesterol Cholesterol/HDL Ratio Lipase - Imaging Impressions Chest X-Ray 10/07/18 17:36 CONCLUSION: No acute intrathoracic disease. Assessment and Plan - Plan Ms. Pacheco is a 63-year-old female with a history of bronchitis and remote aplastic anemia in the 70s who presented to the emergency room and [place] complaining of 3-1/2 days of intermittent chest pain. Her initial troponin I was 7.81, and she was admitted to the main hospital. NSTEMI Severe single-vessel coronary disease involving the left circumflex coronary artery S/P Successful percutaneous coronary intervention with bare-metal stent to the left circumflex coronary artery 10/08 -Troponin I 7.81, 15.70, and 34.8 -Twelve-lead EKG is personally reviewed and show ectopic atrial rhythm with nonspecific ST and T wave abnormalities in lateral leads x 2 ekgs cardiology ff - started on Brillinta + ASA, statins - Dr. Ely ff- plan for DC tomorrow
[2018-10-08] MEDS ORDERED: Heparin/NS PF Inj 1,000 ML ONE (12:08)
[2018-10-08] MEDS ORDERED: fentaNYL Citrate Inj 100 MCG/2 ML Ampul ONE (12:09)
[2018-10-08] MEDS ORDERED: Heparin 10,000 UNITS/10 ML Vial (for IV use) ONE (12:09)
[2018-10-08] MEDS ORDERED: Misc Info for Pharmacy OTHER STA (13:00)
--- NOTE | 2018-10-08 13:07 | P.PCN ---
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 Fluoroscopy with interpretation 2. Coronary angiography 3. Percutaneous coronary intervention of the left circumflex coronary artery 4. Left heart catheterization Methods: Risks, benefits, and alternatives were discussed with the patient. Patient understood and consented to the procedure. Patient was brought into the cardiac catheterization lab and placed on the catheterization table. The patient's right wrist was prepped and draped in a sterile fashion. The right wrist was anesthetized with 1% lidocaine. Right wrist was cannulated and a 6 [place] 11 cm sheath was placed without difficulty. 200 mcg of intra-arterial nitroglycerin was administered and 5000 units of intravenous heparin. Coronary angiography: The left main coronary artery was selectively engaged with a 5 [place] JL 3.5 Evangelista catheter. The right coronary circulation was selectively engaged with a 5 [place] JR 5 Evangelista catheter. 1. Left main coronary artery has mild luminal irregularities 2. Left anterior descending coronary artery has minor luminal irregularities 3. Left circumflex coronary artery has 75% stenosis in mid segment and 95% stenosis at the bifurcation of the obtuse marginal branch 4. Right coronary is a dominant vessel giving rise to the posterior descending branch. The right coronary artery is small caliber size and has a 50% proximal stenosis. Left heart catheterization: Intra-ventricular hemodynamics measured at 130/6 mmHg Percutaneous coronary intervention: Left coronary circulation was selected engaged with 6 [place] AL 2 guide catheter. A 0.014 inch Semetricumo run through wire was navigated down to the distal obtuse marginal branch. A 3.0 x 20 mm Medtronic balloon was deployed and 2 sequential inflations. Repeat angiography still showed severe residual stenosis. A 3.0 x 26 mm bare-metal integrity stent was advanced down to the left circumflex extending into the obtuse marginal branch and deployed intracoronary nitroglycerin was administered. Repeat angiography showed only mild residual stenosis in the proximal segment of the left circumflex which can be managed medically. Angiomax was administered throughout the entire procedure to maintain appropriate anticoagulation Conclusions: 1. Severe single-vessel coronary disease involving the left circumflex coronary artery 2. Successful percutaneous coronary intervention with bare-metal stent to the left circumflex coronary artery Plan: Guideline directed medical therapy. Sheath removed and Hemoband applied. Monitor for postprocedural complications. We will initiate aspirin, Brilinta, beta-dee, and statin therapy. We will add long-acting nitrate. 2D echocardiogram Discharge planning in a.m. Medical management of the right coronary artery. May consider elective single photon emission computed tomography myocardial perfusion imaging to rule out ischemia in that territory.
--- NOTE | 2018-10-08 13:11 | CATHPROC ---
[employer] HIS Report Study Information Study Number Admission Scheduled Start Study Start [id number] Oct 07 2018 7:58PM 10/08/2018 Oct 08 2018 12:01PM [facility] Service Cardiac Catheterization Admit Source Facility Department Emergency department [facility] Physician and Clinical Staff Initial Titus Torres Cracker Dough Mixer North Rodriguez,RN Cracker Dough Mixer North Flores,RN Recorder Ellie Dejesus,RT(R) (BS) Scrub Sherine Andersen,VETERINARY EPIDEMIOLOGIST TECH2 Procedures Performed Procedure Location (Site) Vessel Name Coronary Angiograms LCA Left Coronary Coronary Angiograms RCA Right Coronary L Heart Cath PTCA OM1 Prox CIRC PTCA ADD ON'S Stent OM1 Prox CIRC Wire insertion Radial (right) Radial Art. Equipment Time Acrylic Fabricator Description Size Mfg Part Number Used/Scraped TRANSDUCER, JASPAL [id number] 12:09 Intact Vascular ANGEL * Used W/[id number] *[id number] *[id number] *[id number] *[id number] 12:09 mGenerator BLANKET,WARM AIR CCL * Used *[id number] 12:09 mGenerator PACK, CCL CUSTOM * Used *[id number] 12:09 mGenerator SUPPORT, ARTERIAL ADULT 14895 *[id number] Used [id number] 12:41 MEDTRONIC BALLOON, 3.0 X 20MM EUPHORA 20MM Used *[id number] 12:43 MEDTRONIC STENT, 3.0 26 INTEGRITY 3.0 26 Used *[id number] 12:35 GoSporty 30 YESSICA INDEFLATOR Used *[id number] BAND, RADIAL COMPRESSION TR [id number] 12:58 [employer]Sporty 24CM Used SHORT 24 *[id number] SHEATH, FR6 RADIAL PRELUDE 12:09 [employer]Sporty FR 6 [id number] Used EASE 11CM [id number] 12:09 [employer]y WIRE, EXCHANGE 260CM 3MMJ 260CM Used *[id number] 12:09 NAMIC MANIFOLD, 4 PORT * Used *[id number] 12:09 NYCOMED OMNIPAQUE, 350 MG, 150ML 150ML [id number] Used 12:35 NYCOMED OMNIPAQUE, 350 MG, 50ML 50ML [id number] Used WIRE, RUNTHROUGH NS FLOPPY [id number] 12:37 TERUMNX Pharmagen MEDICAL 180CM Used .014 180CM *[id number] Equipment Model, Serial, Lot Number and Expiration Data Description Model Number Serial Number Lot Number Expiration Date STENT, 3.0 26 INTEGRITY [id number] 06-10-2019 History: Current Medications Medication Dosage/Unit Route Frequency Last Date/Time Taken ASA History: Allergies Allergy Reaction aspirin Twitching History: Risk Factors Family History of Hypertension Dyslipidemia Previous OR Previous Heart Failure Premature CAD No No No No No Prior Valve Prior PCI Prior CABG Surgery No No No Cerebrovascular Peripheral Artery Chronic Lung On Dialysis Diabetes Disease Disease Disease No Yes No No No History: Other Current Smoker Method Packs a Day Yes Cigarettes 1 Labs Hgb (g/dl) Hct (%) WBC (l/cumm) Platelets (thousands) 11.60-17.00 35.00-51.00 4.00-11.00 150.00-450.00 13.9 40.6 10.1 203 Glucose (mg/dl) BUN (mg/dl) Creatinine (mg/dl) BUN:Creatinine (1:x) 74.00-106.00 7.00-18.00 0.50-1.30 10.00-20.00 137 7 0.7 10 Na (meq/l) K (meq/l) 136.00-145.00 3.50-5.10 144 4.1 INR (PTT:PT) 0.90-1.10 1 Medication Medication Total Dose (Bolus/Oral) Medication Total Dosage/Unit 1% XYLOCAINE 1 mL ANGIOMAX BOLUS 9 mL BRILINTA 180 mg FENTANYL 75 mcg HEPARIN 3000 units NTG (IC) 400 mcg VERSED 2 mg Medications (Bolus/Oral) Medication Time Given Dosage/Unit Administered By Reason 10/08/2018 12:24:30 VERSED 1 mg North Rodriguez 1 mg VERSED given in lab by North Rodriguez RN via Peripheral IV. 10/08/2018 12:25:33 FENTANYL 50 mcg North Rodriguez PM 50 mcg FENTANYL given in lab by North Rodriguez, RN via Peripheral IV. 10/08/2018 12:26:59 1% XYLOCAINE 1 mL Titus Ely 1 mL 1% XYLOCAINE given in lab by Titus Ely in Right Radial via Subcutaneous. 10/08/2018 12:28:29 NTG (IC) 200 mcg Minor, Titus PM 200 mcg NTG (IC) given in lab by Titus Ely in Right Radial via Intra-arterial. 10/08/2018 12:29:55 HEPARIN 3000 units North Flores 3000 units HEPARIN given in lab by North Flores RN via Peripheral IV. 10/08/2018 12:36:25 ANGIOMAX BOLUS 9 mL North Flores 9 mL ANGIOMAX BOLUS given in lab by North Flores RN via Peripheral IV. 10/08/2018 12:45:22 NTG (IC) 200 mcg Titus Ely PM 200 mcg NTG (IC) given in lab by Titus Ely via Intra-coronary. 10/08/2018 12:47:31 FENTANYL 25 mcg North Rodriguez 25 mcg FENTANYL given in lab by North Rodriguez RN via Peripheral IV. 10/08/2018 12:48:18 VERSED 1 mg North Rodriguez 1 mg VERSED given in lab by North Rodriguez RN via Peripheral IV. 10/08/2018 12:59:35 BRILINTA 180 mg North Rodriguez 180 mg BRILINTA given in lab by North Rodriguez RN via Oral. Medication (Drip) Medication Time Given Dosage/Unit Concentration/Unit Diluent (ml) Solution 10/08/2018 12:37:22 ANGIOMAX DRIP 1.747 mg/kg/hr 250 mg 50 NaCl .9 PM 1.747 mg/kg/hr ANGIOMAX DRIP given in lab by North Rodriguez RN via Peripheral IV. Pump/Drip Flow = 21. 7 ml/hr using NaCl .9 with a concentration of 250 mg in 50 ml. 10/08/2018 12:09:34 IV Solutions 50 mL (IV) NaCl .9 PM Patient arrived on IV Solutions via Peripheral IV. Pump/Drip Flow using NaCl .9. Initial Case Assessment Cardiovascular HR NIBP 73 104/73 Edema Present Skin color Skin None Normal Warm Dry Circulatory - Right Pulses Dorsalis Pedis Femoral Radial 2 2 2 Scale (0,1,2,3,4,d) Circulatory - Left Pulses Dorsalis Pedis Femoral Radial 2 2 Scale (0,1,2,3,4,d) Neurological State Oriented to time-place- Alert Moves all extremities person Respiration - General Respiration Rate SpO2 (%) (B/min) 10 95 Chronological Log Time Study Chronological Log 11:59:53 Patient arrived via Bed. 11:59:54 Patient Name, D.O.B, / Armband Verified By R.N. 11:59:55 Consent signed by the physician and the patient and verified by the [facility] staff. 11:59:55 Pre-op and post- op instructions given; patient acknowledges understanding of instructions. 12:00:56 Verbal Stimulation=2 Physical Stimulation=2 Airway=2 Respiration=2 TOTAL=8. (0=absent, 1=li mited, 2=present) 12:00:59 Patient has been NPO for More than 6Hrs. Vitals capture started with the following parameters, Patient=Adult, Interval=5 min, Initial Pr vmjyou=998 mmHg, 12:07:13 Deflation Rate=5 mmHg, Cuff placed on Right Arm 12:07:43 Allens test performed on the right radial and ulnar artery. 12:07:49 Patient has been NPO for More than 6Hrs. 12:07:51 SHHR=420/73 mmhg, SpO2=94.0 % 12:07:58 Skin Breakdown-none per pt 12:09:24 Patient Warmer Placed on the Table. 12:09:26 Angélica Prominences Protected 12:09:27 A # 20 IV was noted in the Antecubital (left). Grade = 0 12:09:34 Patient arrived on IV Solutions via Peripheral IV. Pump/Drip Flow using NaCl .9. 12:09:37 History and physical on the chart or being dictated. Assessment: Initial Case, HR=73 BPM, BIVU=832/73 mmhg, Edema=None, Color=Normal, Skin = Warm, D ry Right Pulses: Andrey Ped=2, Femoral=2, Radial=2 12:09:38 Left Pulses: Andrey Ped=2, Femoral=2 Neurological: State=Alert, Ox3, HOOD Respiration: Resp=10 B/min, SpO2=95 % 12:10:07 Right Radial and groin prepped with 2% chlorhexidine, and draped after a 3 min. waiting joselin e. 12:12:42 HR=89 bpm, NXCC=948/73 mmhg, SpO2=95.0 %, Resp=18 B/min, Pain=0, Tenzin=10, Milligan=2 12:15:55 Pressure channel 1 zeroed. 12:17:35 MD paged 12:17:43 HR=77 bpm, EWJP=251/71 mmhg, SpO2=94.0 %, Resp=22 B/min, Pain=0, Tenzin=10, Milligan=2 12:17:46 MD responded 12:22:42 HR=73 bpm, TRDE=505/74 mmhg, Resp=12 B/min, Pain=0, Tenzin=10, Milligan=2 12:23:56 MD arrived 12:24:15 Reference ECG taken Time Out. Correct patient, correct procedure, correct physician, labs, allergies, and equipment verified with cardiac cath lab manager 12:24:26 team present. Fire risk assesment completed (see hard stop sheet for coding). Time Out Conc urred by MD and individual staff in procedure. 12:24:30 1 mg VERSED given in lab by North Rodriguez RN via Peripheral IV. 12:24:40 Case Start 12:25:33 50 mcg FENTANYL given in lab by North Rodriguez RN via Peripheral IV. 12:26:59 1 mL 1% XYLOCAINE given in lab by Titus Ely in Right Radial via Subcutaneous. 12:27:45 HR=75 bpm, NIBP=97/65 mmhg, Resp=9 B/min, Pain=0, Tenzin=10, Milligan=2 12:27:58 Access site was Right Radial Artery . A SHEATH, FR6 RADIAL PRELUDE EASE 11CM FR 6 was advanced into the Radial (right) using the Perc utaneous 12:28:05 technique. 12:28:29 200 mcg NTG (IC) given in lab by Titus Ely in Right Radial via Intra-arterial. 12:29:18 In the Radial (right) the SHEATH, FR6 RADIAL PRELUDE EASE 11CM FR [address] by Titus Ely. 12:29:27 A catheter was advanced over a wire. contrast was used for injections. Recorded Pressure: LV, HR=82, Condition=Condition 1 12:29:55 (Left Ventricle) LV 34/-49/4 12:29:55 3000 units HEPARIN given in lab by North Flores RN via Peripheral IV. Recorded Pressure: LV, Ao, HR=81, Condition=Condition 1 12:29:59 (Left Ventricle) LV 85/2/5, (Aorta) Ao 83/61/71 12:30:37 The RCA was injected and visualized at various angles. OMNIPAQUE, 350 MG, 150ML 150ML used . After removing the current catheter a JL 3.5 INFINITI CATHETER FR 5 was advanced over a WIRE, E XCHANGE 260CM 12:30:46 3MMJ 260CM. 12:31:46 The LCA was injected and visualized at various angles. OMNIPAQUE, 350 MG, 150ML 150ML used . Recorded Pressure: Ao, HR=77, Condition=Condition 1 12:32:00 (Aorta) Ao 89/58/71 12:32:42 HR=80 bpm, NIBP=93/65 mmhg, SpO2=86.0 %, Resp=14 B/min, Pain=0, Tenzin=10, Milligan=2 After removing the current catheter a AL 2 GUIDE CATHETER FR 6 was advanced over a WIRE, EXCHAN GE 260CM 12:33:57 3MMJ 260CM. 12:34:53 OMNIPAQUE, 350 MG, 50ML 50ML and 30 YESSICA INDEFLATOR added. 12:36:25 9 mL ANGIOMAX BOLUS given in lab by North Flores RN via Peripheral IV. 1.747 mg/kg/hr ANGIOMAX DRIP given in lab by North Rodriguez RN via Peripheral IV. Pump/Drip Flow = 21.7 ml/hr 12:37:22 using NaCl .9 with a concentration of 250 mg in 50 ml. 12:37:44 A WIRE, RUNTHROUGH NS FLOPPY .014 180CM 180CM was inserted via Radial (right). 12:37:45 HR=82 bpm, NIBP=78/50 mmhg, EtY0=366.0 %, Resp=14 B/min, Pain=0, Tenzin=10, Milligan=2 A BALLOON, 3.0 X 20MM EUPHORA 20MM was inserted over WIRE, RUNTHROUGH NS FLOPPY .014 180CM 180C M via 12:40:48 the Radial (right). A BALLOON, 3.0 X 20MM EUPHORA 20MM over a WIRE, RUNTHROUGH NS FLOPPY .014 180CM 180CM in the OM 1 12:41:19 Prox was inflated using a 30 YESSICA INDEFLATOR at 8 yessica for 10 sec. A BALLOON, 3.0 X 20MM EUPHORA 20MM over a WIRE, RUNTHROUGH NS FLOPPY .014 180CM 180CM in the OM 1 12:41:38 Prox was inflated using a 30 YESSICA INDEFLATOR at 8 yessica for 6 sec. 12:42:29 Balloon Removed 12:43:13 HR=81 bpm, FTPJ=673/72 mmhg, HkF2=273.0 %, Resp=13 B/min, Pain=0, Tenzin=10, Milligan=2 An STENT, 3.0 26 INTEGRITY 3.0 26 Bare Metal Stent was inserted through a AL 2 GUIDE CATHETER F R 6 over a 12:43:47 WIRE, RUNTHROUGH NS FLOPPY .014 180CM 180CM. A STENT, 3.0 26 INTEGRITY 3.0 26 was deployed using a 30 YESSICA INDEFLATOR at 16 atmospheres for 8 seconds in the 12:44:14 OM1 Prox. 12:45:15 Delivery device removed 12:45:22 200 mcg NTG (IC) given in lab by Titus Ely via Intra-coronary. A BALLOON, 3.0 X 20MM EUPHORA 20MM was inserted over WIRE, RUNTHROUGH NS FLOPPY .014 180CM 180C M via 12:46:29 the Radial (right). A BALLOON, 3.0 X 20MM EUPHORA 20MM over a WIRE, RUNTHROUGH NS FLOPPY .014 180CM 180CM in the OM 1 12:47:16 Prox was inflated using a 30 YESSICA INDEFLATOR at 6 yessica for 30 sec. 12:47:31 25 mcg FENTANYL given in lab by North Rodriguez RN via Peripheral IV. 12:47:44 HR=83 bpm, PUHO=066/84 mmhg, Resp=18 B/min, Pain=0, Tenzin=10, Milligan=2 A BALLOON, 3.0 X 20MM EUPHORA 20MM over a WIRE, RUNTHROUGH NS FLOPPY .014 180CM 180CM in the OM 1 12:48:08 Prox was inflated using a 30 YESSICA INDEFLATOR at 6 yessica for 18 sec. 12:48:18 1 mg VERSED given in lab by North Rodriguez RN via Peripheral IV. 12:52:32 Catheter was removed 12:52:35 Wire removed 12:52:45 Case End (Physician broke scrub) 12:52:49 HR=80 bpm, BEZA=011/70 mmhg, SpO2=95.0 %, Resp=15 B/min, Pain=0, Tenzin=10, Milligan=2 Radial Compression Device Used. 13 mLs of air placed in BAND, RADIAL COMPRESSION TR SHORT 24 24 CM. Affected 12:56:02 hand 96 % O2 saturation. 12:57:42 [facility]IC called. Spoke to Onofre. 12:57:44 XFDS=536/75 mmhg, Pain=0, Tenzin=10, Milligan=2 12:57:58 Catheter(s) removed without difficulty 12:58:46 No case complications noted. 12:58:51 Bedside Report will be given. 12:58:52 Implantable Device card placed in patient's chart. 12:58:54 A Left Heart Cath was performed. 12:59:35 180 mg BRILINTA given in lab by North Rodriguez RN via Oral. 13:02:39 Vitals capture stopped. 13:03:16 Patient moved to [facility] End Study - Contrast Media Used In Study Contrast Total Opened (mL) Total Used (mL) Total Wasted (mL) Omnipaque 350 120 120 0 End Study - Maximum Contrast Load Max Contrast Load (mL) 443.5 End Study - Radiation Exposure Fluoro Time (minutes) 5.5 End Study - Patient Disposition Complications Transferred To Interventional Outcome No Telemetry Bed successful
[2018-10-08] MEDS ORDERED: Iohexol 350 MG/ML 50 ML Vial (for Cath Lab) IVCONTRAST ONE (13:21)
[2018-10-08] MEDS ORDERED: Iohexol 350 MG/ML 100 ML Vial (for Cath Lab) IVCONTRAST ONE (13:21)
[2018-10-08 16:56] LABS: Hemoglobin A1c 5.6 % (4.3-6.0)
--- NOTE | 2018-10-08 16:57 | ECHRPT ---
Indication: CHEST PAIN CONCLUSIONS Technically difficult study. The left ventricular systolic function is severely reduced with an estimated ejection fraction in th e range of 30-35%. Doppler parameters are consistent with impaired left ventricular relaxtion (grade 1 diastolic dysfun ction). Trace mitral valve regurgitation. There is trace tricuspid valve regurgitation. There is a trivial pericardial effusion present. No hemodynamically significant echocardiographic features were observed (no pre-tamponade physiology). BP: / HR: Rhythm: MEASUREMENTS (Male / Female) Normal Values Technical Quality:Technically difficult study 2D ECHO LV Diastolic Diameter PLAX 5.2 cm 4.2 - 5.9 / 3.9 - 5.3 cm LV Systolic Diameter PLAX 4.7 cm IVS Diastolic Thickness 0.6 cm 0.6 - 1.0 / 0.6 - 0.9 cm LVPW Diastolic Thickness 0.7 cm 0.6 - 1.0 / 0.6 - 0.9 cm LV Relative Wall Thickness 0.2 RV Internal Dim ED PLAX 1.7 cm LVOT Diameter 2.2 cm Aortic Root Diameter 2.3 cm LA Systolic Diameter LX 2.7 cm 3.0 - 4.0 / 2.7 - 3.8 cm DOPPLER AV Peak Velocity 110.0 cm/s AV Peak Gradient 4.8 mmHg LVOT Peak Velocity 76.0 cm/s LVOT Peak Gradient 2.3 mmHg AV Area Cont Eq pk 2.6 cm Mitral E Point Velocity 60.7 cm/s Mitral A Point Velocity 78.5 cm/s Mitral E to A Ratio 0.8 TR Peak Velocity 208.0 cm/s TR Peak Gradient 17.3 mmHg Right Atrial Pressure 10.0 mmHg Pulmonary Artery Systolic Pressu 27.3 mmHg Right Ventricular Systolic Press 27.3 mmHg FINDINGS LEFT VENTRICLE Normal left ventricular size. Wall thickness is normal. The left ventricular systolic function is severely reduced with an estimated ejection fraction in th e range of 30-35%. Doppler parameters are consistent with impaired left ventricular relaxtion (grade 1 diastolic dysfun ction). RIGHT VENTRICLE The right ventricle was not well visualized. LEFT ATRIUM Grossly normal size RIGHT ATRIUM The right atrium is not well visualized. ATRIAL SEPTUM Normal atrial septal thickness AORTA The aortic root and proximal ascending aorta are normal in size on limited imaging. MITRAL VALVE Grossly normal Trace mitral valve regurgitation. No mitral valve stenosis. AORTIC VALVE Grossly normal No aortic valve regurgitation. No aortic valve stenosis. TRICUSPID VALVE Grossly normal There is trace tricuspid valve regurgitation. No tricuspid valve stenosis. The estimated pulmonary arterial pressure is 27 mmHg. PULMONARY VALVE The pulmonary valve is not well visualized. PERICARDIUM There is a trivial pericardial effusion present. No hemodynamically significant echocardiographic features were observed (no pre-tamponade physiology). Gerson Grossman DO (Electronically Signed) Final Date:08 October 2018 16:56
[2018-10-09] MEDS: Sod Chloride 0.9% Inj 1,000 ML IV.CONT SCH (01:33)
[2018-10-09] MEDS: Metoprolol Tartrate 25 MG Tablet PO SCH ×2 (01:35→08:20)
[2018-10-09 06:46] LABS: Baso % (Auto) 0.2 % (0.0-2.0); Eos # (Auto) 0.1 th/mm3 (0.0-0.4); Eos % (Auto) 1.4 % (0.0-4.0); Hematocrit 40.6 % (35.0-46.0); Hemoglobin 13.7 gm/dL (11.6-15.3); Lymph # (Auto) 1.9 th/mm3 (1.0-4.8); Lymph % (Auto) 27.8 % (9.0-44.0); Mean Corpuscular HGB Conc 33.7 % (32.0-36.0); Mean Corpuscular Hemoglobin 31.4 pg (27.0-34.0); Mean Corpuscular Volume 93.4 fL (80.0-100.0); Mean Platelet Volume 7.5 fL (7.0-11.0); Mono # (Auto) 0.6 th/mm3 (0.0-0.9); Mono % (Auto) 8.4 % (0.0-8.0); Neut # (Auto) 4.3 th/mm3 (1.8-7.7); Neut % (Auto) 62.2 % (16.0-70.0); Platelet Count 187 th/mm3 (150-450); Red Blood Count 4.34 mil/mm3 (4.00-5.30); Red Cell Distribution Width 13.2 % (11.6-17.2); White Blood Count 6.9 th/mm3 (4.0-11.0)
[2018-10-09 07:05] LABS: Anion Gap 7 meq/L (5-15); Blood Urea Nitrogen 10 mg/dL (7-18); Calcium 8.3 mg/dL (8.5-10.1); Carbon Dioxide 25.6 meq/L (21.0-32.0); Chloride 110 meq/L (98-107); Cholesterol 164 mg/dL (120-200); Glomerular Filtration Rate Greater Than 89 mL/min (>89); Glucose,Random 97 mg/dL (74-106); Potassium 3.4 meq/L (3.5-5.1); Sodium 143 meq/L (136-145)
[2018-10-09 07:07] LABS: Creatine Kinase 364 U/L (26-192); HDL Cholesterol 51.2 mg/dL (40.0-60.0); LDL Cholesterol,Calculated 82 mg/dL (0-99); Triglycerides 152 mg/dL (42-150)
[2018-10-09 07:27] LABS: Creatine Kinase MB 17.9 ng/mL (0.5-3.6)
[2018-10-09 07:32] LABS: CKMB Percent 4.9 % (0.0-4.0)
--- NOTE | 2018-10-09 07:55 | P.PNCA ---
Subjective Interval history: Feeling well today. Denies any chest pain or shortness of breath. No issues with right wrist access site. Telemetry with no definite arrhythmias on review. Reports that she tried aspirin last week and it made her feel worse (NAJERA , nausea) which is what prompted her to come to the hospital, willing to try it again today. Medications and Allergies Allergies Allergy/AdvReac Type Severity Reaction Status Date / Time aspirin Allergy Twitching Verified 10/07/18 17:07 Home Medications Medication Instructions Recorded Confirmed Type No Known Home Medications 10/07/18 10/07/18 History Active Medications: Active Medications Acetaminophen (Tylenol) 650 mg PO Q4H PRN PRN Reason: Temp > 100.4 Last Admin: 10/08/18 13:28 Dose: 325 mg Al Hydroxide/Mg Hydroxide (Milk Of Magnesia Liq) 30 ml PO Q12H PRN PRN Reason: Mild Constipation Aspirin (Aspirin Chew) 81 mg PO DAILY [facility] Last Admin: 10/08/18 08:52 Dose: Not Given Atorvastatin Calcium (Lipitor) 80 mg PO HS [facility] Last Admin: 10/09/18 01:35 Dose: 80 mg Bisacodyl (Dulcolax Supp) 10 mg RECTAL DAILY PRN PRN Reason: SEVERE CONSITIPATION Sodium Chloride (Ns Inj) 1,000 mls @ 70 mls/hr IV.CONT .[id number] [facility] Last Admin: 10/09/18 01:33 Dose: Not Given Lactulose (Lactulose Liq) 30 ml PO DAILY PRN PRN Reason: SEVERE CONSITIPATION Metoprolol Tartrate (Lopressor) 12.5 mg PO BID [facility] Last Admin: 10/09/18 01:35 Dose: Not Given Ondansetron HCl (Zofran Inj) 4 mg IV.PUSH Q6H PRN PRN Reason: NAUSEA OR VOMITING Potassium Chloride (K-Dur) 20 meq PO ONCE ONE Stop: 10/09/18 07:36 Sennosides (Senokot) 17.2 mg PO Q12H PRN PRN Reason: Moderate Constipation Sodium Chloride (Ns Flush) 2 ml IV.FLUSH BID [facility] Last Admin: 10/09/18 01:35 Dose: 2 ml Sodium Chloride (Ns Flush) 2 ml IV.FLUSH PRN PRN PRN Reason: FLUSH AFTER USING IV ACCESS Ticagrelor (Brilinta) 90 mg PO BID [facility] Last Admin: 10/09/18 01:34 Dose: 90 mg Physical Exam Vital signs: Vital Signs 10/08/18 08:00 10/08/18 09:00 10/08/18 10:00 Temperature Pulse Rate 80 78 78 Respiratory Rate Blood Pressure Pulse Oximetry 10/08/18 10:05 10/08/18 11:00 10/08/18 14:00 Temperature Pulse Rate 71 72 Respiratory Rate Blood Pressure Pulse Oximetry 97 10/08/18 15:00 10/08/18 16:00 10/08/18 17:00 Temperature 98.6 F Pulse Rate 75 76 76 Respiratory Rate 18 Blood Pressure 111/65 Pulse Oximetry 94 L 10/08/18 18:00 10/08/18 19:00 10/08/18 20:00 Temperature 98.5 F Pulse Rate 82 70 69 Respiratory Rate 16 Blood Pressure 106/71 Pulse Oximetry 93 L 95 10/08/18 21:00 10/08/18 22:00 10/08/18 23:00 Temperature 98.7 F Pulse Rate 70 70 68 Respiratory Rate 16 Blood Pressure 105/73 Pulse Oximetry 95 10/09/18 00:00 10/09/18 01:00 10/09/18 02:00 Temperature Pulse Rate 70 82 64 Respiratory Rate Blood Pressure Pulse Oximetry 10/09/18 03:00 10/09/18 04:00 Temperature Pulse Rate 68 68 Respiratory Rate 16 Blood Pressure Pulse Oximetry Intake & Output 10/08/18 10/09/18 10/09/18 18:59 06:59 18:59 Intake Total 1721 / 1721 Output Total 250 / 250 Balance 1471 / 1471 Weight 131 lb 13.383 oz Intake: IV 1001 / 1001 Heparin/NS PF Inj 1,000 ML @ 0 1 / 1 mls/hr .ROUTE .STK-MED ONE Rx#: [id number] NS Inj 1,000 ML @ 70 mls/hr IV. 1000 / 1000 CONT .[id number] [facility] Rx#: [id number] Oral 720 / 720 Output: Urine 250 / 250 Other: # Incontinent Voids 1 Date of Last Bowel Movement 10/08/18 10/08/18 Narrative: GENERAL: Well-developed well-nourished. In no acute distress. NECK: No carotid bruits. No JVD. CARDIOVASCULAR: Regular rate and rhythm. RESPIRATORY: No accessory muscle use. Clear to auscultation. Breath sounds equal bilaterally. MUSCULOSKELETAL: No clubbing or cyanosis. LE No edema. Right radial and ulnar pulses intact. NEUROLOGICAL: Awake and alert. Normal speech. Results 10/09/18 05:00 10/09/18 05:00 Cardiac Enzymes 10/07/18 10/07/18 10/08/18 Range/Units 17:15 20:50 01:24 AST 79 H 116 H (15-37) U/L CK-MB (CK-2) (0.5-3.6) ng/mL Troponin I 7.81 H* 15.70 H* D 34.80 H* D (0.02-0.05) ng/mL 10/08/18 10/09/18 Range/Units 06:56 05:00 AST (15-37) U/L CK-MB (CK-2) 17.9 H (0.5-3.6) ng/mL Troponin I 35.90 H* D (0.02-0.05) ng/mL Coagulation 10/07/18 10/08/18 10/08/18 Range/Units 19:30 01:24 06:56 PT 10.0 10.5 (9.8-11.6) sec APTT 28.2 26.5 33.8 H D (23.4-31.7) sec Lipids 10/08/18 10/09/18 Range/Units 01:24 05:00 Triglycerides 170 H 152 H (42-150) mg/dL Cholesterol 177 164 (120-200) mg/dL HDL Cholesterol 55.9 51.2 (40.0-60.0) mg/dL Cholesterol/HDL Ratio 3.16 3.20 Ratio CBC 10/07/18 10/08/18 10/09/18 Range/Units 17:15 01:24 05:00 WBC 7.7 10.1 6.9 (4.0-11.0) th/mm3 RBC 5.07 4.43 4.34 (4.00-5.30) mil/mm3 Hgb 15.1 13.9 13.7 (11.6-15.3) gm/dL Hct 47.1 H 40.6 40.6 (35.0-46.0) % Plt Count 261 203 187 (150-450) th/mm3 Neut # (Auto) 5.3 7.7 4.3 (1.8-7.7) th/mm3 Lymph # (Auto) 1.8 1.6 1.9 (1.0-4.8) th/mm3 [place] # (Auto) 0.5 0.7 0.6 (0.0-0.9) th/mm3 Eos # (Auto) 0.1 0.1 0.1 (0.0-0.4) th/mm3 Baso # (Auto) 0.0 0.0 0.0 (0.0-0.2) th/mm3 Comprehensive Metabolic Panel 10/07/18 10/08/18 10/09/18 Range/Units 17:15 01:24 05:00 Sodium 142 144 143 (136-145) meq/L Potassium 3.5 4.1 3.4 L (3.5-5.1) meq/L Chloride 107 110 H 110 H (98-107) meq/L Carbon Dioxide 30.2 31.1 25.6 (21.0-32.0) meq/L BUN 8 7 10 (7-18) mg/dL Creatinine 0.73 0.79 0.62 (0.50-1.00) mg/dL Calcium 8.3 L 8.2 L 8.3 L (8.5-10.1) mg/dL AST 79 H 116 H (15-37) U/L ALT 30 36 (10-53) U/L Alkaline Phosphatase 84 72 (45-117) U/L Total Protein 7.3 6.5 D (6.4-8.2) g/dL Albumin 3.8 3.2 L D (3.4-5.0) g/dL Intake and Output 10/08/18 10/09/18 10/09/18 22:59 06:59 14:59 Intake Total 1720 / 1720 Output Total 250 / 250 Balance 1470 / 1470 Intake: IV 1000 / 1000 NS Inj 1,000 ML @ 70 mls/hr IV. 1000 / 1000 CONT .[id number] [facility] Rx#: [id number] Oral 720 / 720 Output: Urine 250 / 250 Other: # Incontinent Voids 1 Date of Last Bowel Movement 10/08/18 10/08/18 Weight 131 lb 13.383 oz - Imaging and Cardiology Imaging: Impressions Chest X-Ray 10/07/18 17:36 CONCLUSION: No acute intrathoracic disease. Assessment and Plan - Plan 63-year-old female smoker with no known past medical history who presented for chest pain. NSTEMI: LHC 10/08/18 with PCI BMS to LCx. Trial of aspirin. Continue Brilinta , statin, metoprolol. Echo 10/08/18 with ischemic cardiomyopathy, EF 30-35%. Discharge planning, case management consult for discharge assistance. Discussed Condition With: Patient, RN, Dr. Ely - Attending Attestation DC planning EF 30-35%. [facility]
--- NOTE | 2018-10-09 09:50 | P.DS ---
DS: Providers Date of admission: 10/07/18 19:58 Primary care physician: No Primary Care Physician Consults: 10/07/18 20:02 Consult to Cardiology Routine Consulting Provider: Titus Ely Does the patient have a Crankshaft Straightener who follows them?: No Preferred Dietary Manager:: Titus Ely Reason for Consultation: NSTEMI Notified:: Service Spoke with:: ingrid Date Notified:: 10/08/18 Time Notified:: 04:42 Comments:: Ordering Provider: AYANA Brief History from admission: Ms. Pacheco is a 63-year-old female with a history of bronchitis and remote aplastic anemia in the 70s who presented to the emergency room and [place] complaining of 3-1/2 days of intermittent chest pain. Her initial troponin I was 7.81, and she was admitted to the [facility]. The patient was started on nitroglycerin IV and transferred to [facility] for cardiac cath with Dr. Grossman in the morning. The patient is seen in her hospital room. She reports that she smoked a cigarette on Friday that "tasted funny" and she thinks this caused her chest pain. She states her chest pain lasted for about an hour was accompanied by diaphoresis and radiated down both arms with what is described as an achy pain. She states she had intermittent episodes of chest pain over the past 3-1/2 days with nausea only occurring yesterday. The pain went away with rest but felt severe and heavy in quality. She has been feeling okay otherwise and denies any fevers, chills, shortness of breath, nausea, vomiting, or diarrhea. She really reports that her chest pain had more of an exertional component. She denies any chest pain at the time of my visit. . DS: Diagnosis Discharge Diagnosis (1) NSTEMI (non-ST elevated myocardial infarction): Status: Acute DS: Summary Ms. Pacheco is a 63-year-old female with a history of bronchitis and remote aplastic anemia in the 70s who presented to the emergency room and [place] complaining of 3-1/2 days of intermittent chest pain. Her initial troponin I was 7.81, and she was admitted to the [facility]. Cardiology was consulted, EKG did not show ST elevation. Patient went for cardiac catheterization, patient was found to have a severe single-vessel coronary disease involving the left circumflex coronary artery. S/P Successful percutaneous coronary intervention with bare-metal stent to the left circumflex coronary artery . Troponin max at 34.8.-Twelve-lead EKG is personally reviewed and show ectopic atrial rhythm with nonspecific ST and T wave abnormalities in lateral leads x 2 ekgs. The day after catheterization, patient remained stable without any arrhythmias, she was started on Brilinta, aspirin, metoprolol and Lipitor. However patient is adamant at not taking Lipitor stating that there is a lot of allergies in her family causing hives with Lipitor. She is also anxious about taking aspirin because of hives. Cardiology PA aware of patient's anxiety regarding aspirin and Lipitor. Recommended rosuvastatin. Rosuvastatin will be started and prescribed. Lipitor will be stopped. Patient was counseled regarding smoking cessation. Attending Attestation: Patient counseled regarding smoking cessation, patient agreed to stop. Total time spent providing counseling for smoking cessation: Time spent discussing smoking cessation with patient: 3 to 10 minutes Time Spent with Patient Total time spent providing and/or coordinating discharge services: Greater than 30 minutes Quality: VTE Deep Vein Thrombosis/Pulmonary Embolism Present on Admission: No Exam Narrative Exam Narrative: GENERAL: Well-developed well-nourished. In no acute distress. NECK: No carotid bruits. No JVD. CARDIOVASCULAR: Regular rate and rhythm. RESPIRATORY: No accessory muscle use. Clear to auscultation. Breath sounds equal bilaterally. MUSCULOSKELETAL: No clubbing or cyanosis. LE No edema. right wrist - TR band in place NEUROLOGICAL: Awake and alert. Normal speech. Results Labs on day of discharge: Labs from last 24 hours 10/09/18 10/09/18 10/08/18 05:00 05:00 01:24 WBC 6.9 RBC 4.34 Hgb 13.7 Hct 40.6 MCV 93.4 MCH 31.4 MCHC 33.7 RDW 13.2 Plt Count 187 MPV 7.5 Neut % (Auto) 62.2 Lymph % (Auto) 27.8 [place] % (Auto) 8.4 H Eos % (Auto) 1.4 Baso % (Auto) 0.2 Neut # (Auto) 4.3 Lymph # (Auto) 1.9 [place] # (Auto) 0.6 Eos # (Auto) 0.1 Baso # (Auto) 0.0 WBC Differential . Differential Comment Auto diff final Sodium 143 Potassium 3.4 L Chloride 110 H Carbon Dioxide 25.6 Anion Gap 7 BUN 10 Creatinine 0.62 Estimated GFR Greater than 89 Random Glucose 97 Hemoglobin A1c 5.6 Calcium 8.3 L Total Creatine Kinase 364 H CK-MB (CK-2) 17.9 H CK-MB (CK-2) % 4.9 H* Triglycerides 152 H Cholesterol 164 LDL Cholesterol, Calc 82 HDL Cholesterol 51.2 Cholesterol/HDL Ratio 3.20 Impressions ITS Impressions Chest X-Ray 10/07/18 17:36 CONCLUSION: No acute intrathoracic disease. Discharge Plan Discharge Disposition Patient Disposition: Discharge Home Discharge Condition Condition: Good Discharge Order Discharge Orders: Discharge Order (Routine); Ordered 10/09/18 Ordered By: Pato Arenas Cardiology Clear for Discharge (Routine); Ordered 10/09/18 Ordered By: Titus Ely Discharge Details Anticipated Discharge Date: 10/09/18 Physicians Team Primary Care Provider: Primary Yasmine Hawley Attending Provider: Pato Arenas Other Providers: Titus Ely Rxs /Orders / Referrals /Forms Prescriptions: New atorvastatin 40 mg Tablet 40 mg PO HS Qty: 30 RF: 0 aspirin 81 mg Tablet,Chewable 81 mg PO DAILY Qty: 30 RF: 0 metoprolol tartrate 25 mg Tablet 12.5 mg PO BID Qty: 60 RF: 0 ticagrelor [Brilinta] 90 mg Tablet 90 mg PO BID Qty: 60 RF: 0 No Action No Known Home Medications RF: 0 Ambulatory Orders / Order Sets / DME: Defibrillator Jacket (Routine) Location: Determined by Patient Ordered By: Syed Potter Referrals: Primary Care Yasmine Mckeon [Primary Care Provider] - See Instructions Discharge Instructions Patient Printed Instructions: Chest Pain (ED), Heart Catheterization (DC) Discharge Interventions Interventions: Discharge Planning - Case Management Last Done: 10/08/18 17:13 Status ED Status: Left Department
--- NOTE | 2018-10-09 16:14 | ECG ---
Date Performed: 10/08/2018 Time Performed: 14:13:36 PTAGE: 63 years EKG: Sinus rhythm . Left axis deviation Possible inferior infarct - age undetermined Anterolateral ST-T changes may be due to myocardial ischemia Abnormal ECG NO PREVIOUS TRACING DOCTOR: Jacinto August Interpretating Date/Time 10/09/2018 16:13:39
== END 2018-10-09 16:05 | disposition home or self-care (01) ==
LOC: PHED 16:45 → PHEDA 19:58 → HCIS 23:45
PROVIDERS: ADMIT Hospitalist; ATTEND Hospitalist